=== PATIENT | female | born 1990 | race American Indian/Alaskan Native ===

== ENCOUNTER 2018-06-01 01:41 | Emergency (ER) | payer OTHER ==
[2018-06-01 01:56] VITALS: TEMP 98.6
[2018-06-01] MEDS ORDERED: Sodium Chloride 0.9% 1,000 ML IV STA (02:05)
[2018-06-01] MEDS ORDERED: Morphine 4 mg/ml ISec IVP STA (02:16)
--- NOTE | 2018-06-01 02:30 | ED PDOC ---
Arrival/HPI - General Chief Complaint: Abdominal Pain Time Seen by Provider: 06/01/18 01:44 Historian: Patient - History of Present Illness Narrative History of Present Illness (Text): 06/01/18 02:27 28 year old female, with past medical history of ectopic and umbilical hernia, presents to emergency department complaining of nausea, vomiting, and "umbilical hernia type" intermittent pain over the past 4 days. Patient reports associated episodes of vomiting throughout the day today. Patient states she was recently seen at another hospital 7 days ago and had her hernia reduced. Patient notes she has not had a bowel movement today and denies any fevers, chills, night sweats, chest pain, shortness of breath or any other complaints. Time/Duration: Other (4 days ) Symptom Onset: Gradual Symptom Course: Unchanged Activities at Onset: Light Context: Home Past Medical History - Provider Review Nursing Documentation Reviewed: Yes - Infectious Disease Hx of Infectious Diseases: None - Reproductive Currently : No - Cardiac Hx Cardiac Disorders: No - Pulmonary Hx Respiratory Disorders: No - Neurological Hx Neurological Disorder: No - Psychiatric Hx Substance Use: No - Surgical History Other/Comment: ectopic one fallopian tube removed - Anesthesia Hx Anesthesia: No Family/Social History - Physician Review Nursing Documentation Reviewed: Yes Family/Social History: Unknown Family HX Smoking Status: Never Smoked Hx Alcohol Use: Yes Frequency of alcohol use: Socially Hx Substance Use: No Allergies/Home Meds Allergies/Adverse Reactions: Allergies No Known Allergies Allergy (Verified 06/01/18 01:47) Home Medications: Home Meds Medication Instructions Recorded Confirmed No Known Home Med 06/01/18 06/01/18 Review of Systems - Physician Review All systems were reviewed & negative as marked: Yes - Review of Systems Constitutional: absent: Fatigue, Weight Change, Fevers, Night Sweats Eyes: absent: Vision Changes, Photophobia ENT: absent: Hearing Changes, Tinnitus, TMJ Pain Respiratory: absent: SOB, Cough Cardiovascular: absent: Chest Pain, Palpitations, Edema Gastrointestinal: Abdominal Pain, Nausea, Vomiting. absent: Stool Changes, Constipation, Diarrhea, Appetite Changes, Hematochezia, Hematemesis Genitourinary Female: absent: Dysuria, Frequency, Hematuria, Urine Output Changes, Vaginal Bleeding, Vaginal Discharge Musculoskeletal: absent: Back Pain, Neck Pain Skin: absent: Rash Neurological: absent: Headache, Dizziness, Focal Weakness Physical Exam Vital Signs Reviewed: Yes Vital Signs Temp Pulse Resp BP Pulse Ox 06/01/18 01:56 98.6 F 47 L 18 105/67 99 Temperature: Afebrile Blood Pressure: Normal Pulse: Regular Respiratory Rate: Normal Appearance: Positive for: Well-Appearing, Non-Toxic, Comfortable Pain Distress: None Mental Status: Positive for: Alert and Oriented X 3 - Systems Exam Head: Present: Atraumatic, Normocephalic Pupils: Present: PERRL Extroacular Muscles: Present: EOMI Conjunctiva: Present: Normal Mouth: Present: Moist Mucous Membranes Neck: Present: Normal Range of Motion Respiratory/Chest: Present: Clear to Auscultation, Good Air Exchange. No: Respiratory Distress, Accessory Muscle Use Cardiovascular: Present: Regular Rate and Rhythm, Normal S1, S2. No: Murmurs Abdomen: Present: Hernias (umbilical hernia ). No: Tenderness, Distention, Peritoneal Signs Back: Present: Normal Inspection. No: CVA Tenderness, Midline Tenderness Upper Extremity: Present: Normal Inspection. No: Cyanosis, Edema Lower Extremity: Present: Normal Inspection. No: Edema Neurological: Present: GCS=15, CN II-XII Intact, Speech Normal Skin: Present: Warm, Dry, Normal Color. No: Rashes Psychiatric: Present: Alert, Oriented x 3, Normal Insight, Normal Concentration Medical Decision Making ED Course and Treatment: 06/01/18 02:32 Impression: 28 year old female presents to emergency department complaining of nausea, vomiting, and "umbilical hernia type" pain since Saturday. No signs of ischemia noted on exam. Likey reducible hernia. No RLQ or LLQ or RUQ or LUQ pain. Pain only at site of hernia. No epigastric or suprapubic pain. No dark or bloody stool. Differential Diagnosis included but are not limited to: Plan: -- Labs -- IV Fluids -- Toradol -- Reassess and disposition Prior Visits: Notes and results from previous visits were reviewed. Progress Notes: 06/01/18 02:54 umbilical hernia successfully reduced by residential treatment staff pt notes great improvement of pain tolerating clears, walking well lactic unremarkable, labs largely unremarkable pt notes she normally has a low heart rate. It is no worse than normal today. 06/01/18 03:02 EKG: Ordered, reviewed, and independently interpreted the EKG. Rate : 44 BPM Interpretation : No stemi, sinus bradycardia asymptompatic bradycardia, clear for d/c home w/ cards additionally. informed pt regarding slow hr and need for followup - Medication Orders Current Medication Orders: Sodium Chloride (Sodium Chloride 0.9%) 1,000 mls @ 999 mls/hr IV .Q1H1M STA Stop: 06/01/18 03:05 Last Admin: 06/01/18 02:25 Dose: 999 mls/hr eMAR Start Stop Document 06/01/18 02:25 EB (Rec: 06/01/18 02:25 [id number]) Intravenous Solution Start Date 06/01/18 Start Time 02:25 Discontinued Medications Ketorolac Tromethamine (Toradol) 15 mg IVP STAT STA Stop: 06/01/18 02:24 Ondansetron HCl (Zofran Inj) 4 mg IVP STAT STA Stop: 06/01/18 02:06 Last Admin: 06/01/18 02:25 Dose: 4 mg IVP Administration Document 06/01/18 02:25 (Rec: 06/01/18 02:25 [id number]) Charges for Administration # of IVP Administrations 1 - Scribe Statement The provider has reviewed the documentation as recorded by the Scribe Evetron De Souza All medical record entries made by the Scribe were at my direction and personally dictated by me. I have reviewed the chart and agree that the record accurately reflects my personal performance of the history, physical exam, medical decision making, and the department course for this patient. I have also personally directed, reviewed, and agree with the discharge instructions and disposition. Disposition/Present on Arrival - Present on Arrival Any Indicators Present on Arrival: No History of DVT/PE: No History of Uncontrolled Diabetes: No Urinary Catheter: No History of Decub. Ulcer: No History Surgical Site Infection Following: None - Disposition Have Diagnosis and Disposition been Completed?: Yes Diagnosis: Umbilical hernia, Sinus bradycardia Disposition: HOME/ ROUTINE Disposition Time: 02:55 Condition: GOOD Discharge Instructions (ExitCare): Abdominal Hernia (DC), Bradycardia (DC) Additional Instructions: RETURN IF REOCCURS. SEE DR. VELASCO (SURGERY) FOR REPAIR. ELICIA GOMEZ, thank you for letting us take care of you today. Your provider was James Ramos and you were treated for ABD PAIN. The emergency medical care you received today was directed at your acute symptoms. If you were prescribed any medication, please fill it and take as directed. It may take several days for your symptoms to resolve. Return to the Emergency Department if your symptoms worsen, do not improve, or if you have any other problems. Please contact your doctor or call one of the physicians/clinics you have been referred to that are listed on the Patient Visit Information form that is included in your discharge packet. Bring any paperwork you were given at discharge with you along with any medications you are taking to your follow up visit. Our treatment cannot replace ongoing medical care by a primary care provider outside of the emergency department. Thank you for allowing the [facility] team to be part of your care today. If you had an X-Ray or CT scan: A Radiologist will review the ED reading if any change in treatment is needed we will contact you. If you had a blood, urine, or wound culture: It will take several days for the results, if any change in treatment is needed we will contact you. If you had an STI test: It will take 48 hours for the results. Please call after 1 week if you have not heard back. Referrals: [facility] [Outside] - Follow up with primary [facility] [Outside] - Follow up with primary [facility] [Outside] - Follow up with primary Michael Velasco MD [Staff Provider] - Follow up with primary Giancarlo Pond MD [Staff Provider] - Follow up with primary Forms: [facility] (Urdu), WORK NOTE
[2018-06-01 02:31] LABS: BASO # 0.01 K/mm3 (0.0-2.0); BASO % 0.1 % (0.0-3.0); EOS # 0.1 (0.0-0.7); EOS % 0.9 % (1.5-5.0); HEMOGLOBIN 11.9 g/dL (12.0-16.0); LYMPH # 1.6 (1.2-3.4); LYMPH % 15.9 % (22.0-35.0); MEAN CELL VOLUME 94.7 fl (80.0-105.0); MEAN CORPUSCULAR HEMOGLOBIN 31.5 pg (25.0-35.0); MEAN CORPUSCULAR HGB CONC 33.2 g/dl (31.0-37.0); MONO # 0.3 (0.1-0.6); MONO % 2.9 % (1.0-6.0); RBC 3.78 10^6/uL (3.5-6.1); RED CELL DISTRIBUTION WIDTH 13.3 % (11.5-14.5); WHITE BLOOD COUNT 9.8 10^3/uL (4.5-11.0)
[2018-06-01 02:32] LABS: VENOUS BLOOD GAS BASE EXCESS 0.4 mmol/L (0.0-2.0); VENOUS BLOOD GAS PO2 38 mm/Hg (30-55); VENOUS BLOOD PH 7.31 (7.32-7.43)
[2018-06-01 02:42] LABS: ALB/GLOB RATIO 1.4 (1.1-1.8); ALBUMIN 4.5 g/dL (3.0-4.8); ALT/SGPT 12 U/L (7-56); AST/SGOT 18 U/L (14-36); BLOOD UREA NITROGEN 13 mg/dL (7-21); CALCIUM 9.7 mg/dL (8.4-10.5); GFR NON-AFRICAN AMERICAN > 60; LIPASE 198 U/L (23-300)
--- NOTE | 2018-06-01 03:13 | CP.PCM.CON ---
History of Present Illness - History of Present Illness History of Present Illness: Surgery Consult note. Dr. Patel 28yo F with no significant PMHx here for evaluation of abdominal pain. Patient reports a small umbilical hernia which has been present since the of her child 13 years ago. She states that over this past week, she has had a minor cough and the hernia has become stuck and had [place] [facility] [place]. She was since doing okay when the bulge came back last night at 11PM and she was unable to push it back in due to pain. She had some associated nausea and one episode on vomiting, non-bilious, non-bloody. She denies any fevers or chills. Reports regular bowel movements. States that she was seen by her PMD last week, [facility], and has a follow up with a Gas troenterologist on 06/02/18. She denies having a referral to a surgeon. She denies possibility of being , currently takes oral contraceptives. Denies any urinary complaints. Denies any chest pain. No shortness of breath. No dizziness. No headaches. No syncopal episodes. PMHx: denies PSHx: Diagnostic Laparoscopy x3 (ovarian cyst removal x2; Ectopic evacuation x1) Family Hx: non-contributory Social Hx: Denies Tobacco use; Admits to occasional ETOH use; Denies illicit raul oseguera NKDA Review of Systems - Review of Systems All systems: reviewed and no additional remarkable complaints except - Constitutional Constitutional: As Per HPI. absent: Chills, Fever - Gastrointestinal Gastrointestinal: Abdominal Pain, Nausea, Vomiting. absent: Change in Bowel Habits, Diarrhea Past Patient History - Infectious Disease Hx of Infectious Diseases: None - Past Social History Smoking Status: Never Smoked Alcohol: Occasional Drugs: Denies - CARDIAC Hx Cardiac Disorders: No - PULMONARY Hx Respiratory Disorders: No - NEUROLOGICAL Hx Neurological Disorder: No - PSYCHIATRIC Hx Substance Use: No - SURGICAL HISTORY Other/Comment: ectopic one fallopian tube removed - ANESTHESIA Hx Anesthesia: No Meds Allergies/Adverse Reactions: Allergies Allergy/AdvReac Type Severity Reaction Status Date / Time No Known Allergies Allergy Verified 06/01/18 01:47 Physical Exam - Constitutional Appears: Well, Non-toxic, No Acute Distress - Head Exam Head Exam: ATRAUMATIC, NORMAL INSPECTION, NORMOCEPHALIC - Eye Exam Eye Exam: EOMI, Normal appearance. absent: Scleral icterus - ENT Exam ENT Exam: Mucous Membranes Moist - Respiratory Exam Respiratory Exam: NORMAL BREATHING PATTERN. absent: Accessory Muscle Use, Respiratory Distress - Cardiovascular Exam Cardiovascular Exam: RRR. absent: JVD - GI/Abdominal Exam GI & Abdominal Exam: Soft. absent: Distended, Firm, Guarding, Rebound, Rigid Additional comments: small periumbilical hernia: reduced after placing patient in supine position, ice pack. Reduced with minimal digital pressure at the defect. Defect is small approximately 1-2 cm. Tender to palpation. No skin changes noted. Abdomen is soft, non-tender apart from the umbilical defect site. No rebound. No guarding. No peritoneal signs. - Extremities Exam Extremities exam: Positive for: normal inspection. Negative for: calf tenderness - Neurological Exam Neurological exam: Alert, Oriented x3 - Skin Skin Exam: Dry, Intact, Normal Color, Warm Results - Vital Signs Recent Vital Signs: Last Vital Signs Temp 98.6 F 06/01/18 01:56 Pulse 47 L 06/01/18 01:56 Resp 18 06/01/18 01:56 BP 105/67 06/01/18 01:56 Pulse Ox 99 06/01/18 01:56 - Labs Result Diagrams: 06/01/18 02:00 06/01/18 02:00 Labs: Laboratory Results - last 24 hr 06/01/18 06/01/18 06/01/18 02:00 02:00 02:00 WBC 9.8 RBC 3.78 Hgb 11.9 L Hct 35.8 L MCV 94.7 MCH 31.5 MCHC 33.2 RDW 13.3 Plt Count 279 MPV 11.0 Neut % (Auto) 80.2 H Lymph % (Auto) 15.9 L [place] % (Auto) 2.9 Eos % (Auto) 0.9 L Baso % (Auto) 0.1 Lymph # (Auto) 1.6 [place] # (Auto) 0.3 Eos # (Auto) 0.1 Baso # (Auto) 0.01 Absolute Neuts (auto) 7.85 H pO2 38 VBG pH 7.31 L VBG pCO2 55.0 VBG HCO3 27.7 VBG Total CO2 29.4 H VBG O2 Sat (Calc) 72.4 H VBG Base Excess 0.4 VBG Potassium 3.4 L Sodium 141.0 140 Chloride 106.0 106 Glucose 95 Lactate 1.1 FiO2 21.0 Potassium 3.9 Carbon Dioxide 26 Anion Gap 12 BUN 13 Creatinine 0.8 Est GFR ( Amer) > 60 Est GFR (Non-Af Amer) > 60 Random Glucose 98 Calcium 9.7 Total Bilirubin 0.3 AST 18 ALT 12 Alkaline Phosphatase 42 Total Protein 7.6 Albumin 4.5 Globulin 3.2 Albumin/Globulin Ratio 1.4 Lipase 198 Venous Blood Potassium 3.4 L Assessment & Plan - Assessment and Plan (Free Text) Assessment: 28yo F with PSHx of multiple diagnostic laparoscopies, here with small umbilical hernia. - Reduced - Labs within normal limits Plan: - small pressure dressing placed using dry gauze and tegaderm - Discussed with patient at length regarding follow up plan. She understands and agrees - Patient may follow up with Dr. Patel, in office upon discharge for elective umbilical hernia repair. Call for appointment - Patient to return to the ED with any concerning symptoms or recurrent symptoms Further recs as per Dr. Jorge Mcgrath PGY2 surgery
[2018-06-01 03:30] VITALS: BP 100/59; PULSE 52; RESP 19; O2SAT 100
--- NOTE | 2018-06-01 08:42 | CARD ---
APPROVED REPORT Date of service: 06/01/2018 EKG Measurement Heart [id number] <Conclusion> Marked sinus bradycardia Abnormal ECG
== END 2018-06-01 03:30 | disposition home or self-care (01) ==
LOC: ED 01:41
DX: K42.9 Umbilical hernia without obstruction or gangrene (principal); R00.1 Bradycardia, unspecified
CPT/HCPCS: 80053; 81025; 82803; 83690; 85025; 93005; 96374; 96375; 99283; J1885; J2405; J7030